=== PATIENT | female | born 1995 | race Caucasian/White ===

== ENCOUNTER 2020-12-13 22:58 | Emergency (ER) | payer OTHER ==
[2020-12-14 00:39] LABS: HEMOGLOBIN 12.8 gm/dl (12.3-15.3); RED BLOOD COUNT 4.15 M/UL (4.00-5.10); WHITE BLOOD COUNT 8.4 K/UL (4.5-11.0)
== END 2020-12-14 04:25 | disposition home or self-care (01) ==
LOC: ER1 22:58
PROVIDERS: Physician Assistant
DX: S00.12XA Contusion of left eyelid and periocular area, initial encounter (principal); E86.0 Dehydration; E87.1 Hypo-osmolality and hyponatremia; G40.909 Epilepsy, unspecified, not intractable, without status epilepticus; Z79.899 Other long term (current) drug therapy; W10.9XXA Fall (on) (from) unspecified stairs and steps, initial encounter; Y93.9 Activity, unspecified; Y92.149 Unspecified place in prison as the place of occurrence of the external cause
CPT/HCPCS: 80053; 81001; 83935; 84300; 84703; 85025; 96374; 96376; 99284; J2405; J7030

== ENCOUNTER 2020-12-15 20:21 | Emergency (ER) | payer OTHER ==
[2020-12-15 21:10] LABS: HEMOGLOBIN 12.1 gm/dl (12.3-15.3); RED BLOOD COUNT 3.9 M/UL (4.00-5.10)
[2020-12-15 21:16] LABS: WHITE BLOOD COUNT 6.2 K/UL (4.5-11.0)
[2020-12-15 21:33] LABS: BUN/CREATININE RATIO 9 (0-10)
== END 2020-12-15 22:05 | disposition home or self-care (01) ==
LOC: ER1 20:21
PROVIDERS: Nurse Practitioner
DX: S00.83XA Contusion of other part of head, initial encounter (principal); S00.03XA Contusion of scalp, initial encounter; W19.XXXA Unspecified fall, initial encounter
CPT/HCPCS: 70450; 80053; 85025; 96374; 99284; J2405